=== PATIENT | male | born 1935 | race Caucasian/White ===

== ENCOUNTER 2017-04-04 05:39 | Day surgery (SDC) | payer MEDICARE ==
[~2017-04-04] VITALS: Ht 182.9 cm; Wt 109.3 kg
[~2017-04-04 05:39] MED LIST: CARB1TAB PO; CETI10TA PO; COUM2TAB22 PO; FINA5TAB2 PO; FLOM5CAP PO; METO1TAB7 PO; REFR1DRO8 OP; VITA100067 PO; WARF-23 PO
[2017-04-04] MEDS ORDERED: SLF 3 ML SYR IV PRN (05:45)
[2017-04-04] MEDS ORDERED: ACETAMINOPHEN 325 MG TAB PO PRN (06:00)
[2017-04-04] MEDS ORDERED: SLF 3 ML SYR IV SCH (06:00)
[2017-04-04] MEDS ORDERED: POVIDONE-IODINE 5% OPHTH PREP SOL 30ML As Ordered ONE (06:44)
[2017-04-04] MEDS ORDERED: LIDOCAINE 1% SDV 5 ML VIAL As Ordered ONE (06:44)
[2017-04-04] MEDS ORDERED: ACETYLCHOLINE OPHTH SOLN 1% 2ML (MIOCHOL-E) As Ordered ONE (06:44)
[2017-04-04] MEDS ORDERED: CEFUROXIME 1MG/0.1ML INTRACAMERAL INJ As Ordered ONE (06:45)
[2017-04-04] MEDS ORDERED: HEALON DUET (HEALON 10MG/ML 0.55ML & HEALON ENDOCOAT 30MG/ML 0.85ML) As Ordered ONE (06:46)
[2017-04-04] MEDS ORDERED: BALANCED SALT IRRIGATION SOL 500ML GLASS BOTTLE (FOR OR EYE COMPOUND) As Ordered ONE (06:49)
[2017-04-04] MEDS ORDERED: LIDOCAINE 3.5 % 1ML OPHTH TOPICAL GEL OU ONE (07:00)
[2017-04-04] MEDS ORDERED: TROPICAMIDE 1% OPHTH SOLN 2ML OD ONE (07:00)
[2017-04-04] MEDS ORDERED: OFLOXACIN 0.3 % (OCUFLOX) OPTH SOL 5ML OD ONE (07:00)
[2017-04-04] MEDS ORDERED: PHENYLEPHRINE HCL 10 % OPHTH. SOL 5ML OD PRN (07:00)
[2017-04-04] MEDS ORDERED: PHENYLEPHRINE 2.5% OPHTH SOL 2ML OD ONE (07:00)
[2017-04-04] MEDS ORDERED: CYCLOPENTOLATE 2% OPHTH SOLN 2ML BTL OD ONE (07:00)
[2017-04-04] MEDS ORDERED: PROPARACAINE 0.5% OPHTH SOL 15ML OD PRN (07:01)
[2017-04-04] MEDS ORDERED: PHENYLEPHRINE HCL 10 % OPHTH. SOL 5ML As Ordered ONE (07:25)
[2017-04-04] MEDS ORDERED: MIDAZOLAM INJ 2 MG/2 ML VIAL (J2250) As Ordered ONE (07:33)
[2017-04-04] MEDS ORDERED: fentaNYL 100 MCG/2 ML INJECTION (J3010) As Ordered ONE (07:33)
[2017-04-04] MEDS ORDERED: KETOROLAC 0.5% OPHTH SOLN OD ONE (08:15)
[2017-04-04] MEDS ORDERED: TRIMETHOBENZAMIDE 300 MG CAP PO PRN (08:15)
[2017-04-04] MEDS ORDERED: AcetaZOLAMIDE 500 MG ER CAP PO ONE (08:15)
[2017-04-04 08:36] VITALS: BP 160/106
--- NOTE | 2017-04-04 17:15 | RO ---
DATE OF PROCEDURE: 04/04/2017 PREPROCEDURE DIAGNOSES: Age-related nuclear cataract and astigmatism right eye. POSTPROCEDURE DIAGNOSES: Age-related nuclear cataract and astigmatism right eye. PROCEDURE: Phacoemulsification and insertion of Toric posterior chamber intraocular lens. The lens used was [id number], 29.0 diopter. SURGEON: Nia Lopez MD ELECTRICAL AND ELECTRONIC ASSEMBLER: ANESTHESIA: Topical with sedation. DESCRIPTION OF PROCEDURE: The patient was prepped and draped in the usual fashion. A lid speculum was placed between the lids. The eye had previously been marked at this 9-o'clock position. It was previously marked in the 3-o'clock and 9-o'clock and now with Toric marker was used to portillo the 6-o'clock and 12-o'clock position. The eye was fixated. A stab incision was made to the anterior chamber, and 1% non-preserved lidocaine was instilled. Then, viscoelastic was instilled. The eye was re-fixated. A 2.4 mm keratome was used to make a clear corneal temporal limbal incision. Capsulorrhexis was begun with a 30-gauge bent needle and then carried out in a circular fashion with capsulorrhexis forceps. The lens was then hydrodissected, and the phacoemulsification unit was used to groove the nucleus in two meridians. The nucleus was then cracked into four quadrants. Each quadrant was removed with the phacoemulsification unit. Any remaining cortex was removed with the irrigation and aspiration (I and A) unit. Capsular bag was refilled with viscoelastic and the posterior chamber intraocular lens was placed into position. The Toric lens was rotated until it was about 15 degrees from the 90 degrees position. The optimal position was 89 degrees. The viscoelastic was removed and during viscoelastic removal the lens rotated slightly to approximately 90 degrees. The wound was then hydrated and Miochol and cefuroxime were instilled. The patient tolerated the procedure well and went to the recovery room in stable condition.
== END 2017-04-04 08:37 | disposition home or self-care (01) ==
LOC: M SDC 05:39
PROVIDERS: ATTEND Ophthalmology
DX: H25.11 Age-related nuclear cataract, right eye (principal); H52.201 Unspecified astigmatism, right eye; I48.2 Chronic atrial fibrillation; I10 Essential (primary) hypertension; G20 Parkinson's disease; G47.33 Obstructive sleep apnea (adult) (pediatric); N40.1 Benign prostatic hyperplasia with lower urinary tract symptoms; N13.8 Other obstructive and reflux uropathy; F10.20 Alcohol dependence, uncomplicated; E03.9 Hypothyroidism, unspecified; Z79.899 Other long term (current) drug therapy; Z79.01 Long term (current) use of anticoagulants; Z96.653 Presence of artificial knee joint, bilateral; Z87.891 Personal history of nicotine dependence
CPT/HCPCS: 66984; J2250; J3010; V2787

== ENCOUNTER 2017-04-25 06:21 | Day surgery (SDC) | payer MEDICARE ==
[~2017-04-25 06:21] MED LIST changes: +ACETAMINOPHEN 325 MG TAB PO; -CARB1TAB PO; -CETI10TA PO; -COUM2TAB22 PO; -FINA5TAB2 PO; -FLOM5CAP PO; -METO1TAB7 PO; -REFR1DRO8 OP; -VITA100067 PO; -WARF-23 PO
[2017-04-25] MEDS: OFLOXACIN 0.3 % (OCUFLOX) OPTH SOL 5ML OS (06:57)
[2017-04-25] MEDS: PHENYLEPHRINE 2.5% OPHTH SOL 2ML OS (06:57)
[2017-04-25] MEDS: TROPICAMIDE 1% OPHTH SOLN 2ML OS (06:57)
[2017-04-25] MEDS: LIDOCAINE 3.5 % 1ML OPHTH TOPICAL GEL OU (06:57)
[2017-04-25] MEDS: CYCLOPENTOLATE 2% OPHTH SOLN 2ML BTL OS (06:57)
[2017-04-25] MEDS ORDERED: PROPARACAINE 0.5% OPHTH SOL 15ML OS (07:01)
[2017-04-25] MEDS: PHENYLEPHRINE HCL 10 % OPHTH. SOL 5ML OS (07:07)
[2017-04-25] MEDS ORDERED: fentaNYL 100 MCG/2 ML INJECTION (J3010) As Ordered (07:12)
[2017-04-25] MEDS ORDERED: MIDAZOLAM INJ 2 MG/2 ML VIAL (J2250) As Ordered (07:12)
[2017-04-25] MEDS: HEALON DUET (HEALON 10MG/ML 0.55ML & HEALON ENDOCOAT 30MG/ML 0.85ML) As Ordered (08:00)
[2017-04-25] MEDS: CEFUROXIME 1MG/0.1ML INTRACAMERAL INJ As Ordered (08:00)
[2017-04-25] MEDS: LIDOCAINE 1% SDV 5 ML VIAL As Ordered (08:00)
[2017-04-25] MEDS: POVIDONE-IODINE 5% OPHTH PREP SOL 30ML As Ordered (08:00)
[2017-04-25] MEDS: BALANCED SALT IRRIGATION SOLUTION 500ML BAG (FOR OR EYE MACHINE) As Ordered (08:00)
[2017-04-25] MEDS: ACETYLCHOLINE OPHTH SOLN 1% 2ML (MIOCHOL-E) As Ordered (08:00)
[2017-04-25] MEDS ORDERED: TRIMETHOBENZAMIDE 300 MG CAP PO (08:30)
[2017-04-25] MEDS: AcetaZOLAMIDE 500 MG ER CAP PO (08:37)
[2017-04-25] MEDS: KETOROLAC 0.5% OPHTH SOLN OS (08:37)
== END 2017-04-25 09:07 | disposition home or self-care (01) ==
LOC: M SDC 06:21
DX: H25.012 Cortical age-related cataract, left eye (principal); H52.202 Unspecified astigmatism, left eye; N40.1 Benign prostatic hyperplasia with lower urinary tract symptoms; N13.8 Other obstructive and reflux uropathy; I10 Essential (primary) hypertension; I48.2 Chronic atrial fibrillation; G20 Parkinson's disease; G47.33 Obstructive sleep apnea (adult) (pediatric); F10.20 Alcohol dependence, uncomplicated; Z79.899 Other long term (current) drug therapy; Z96.653 Presence of artificial knee joint, bilateral
CPT/HCPCS: 66984